=== PATIENT | male | born 1965 | race Caucasian/White ===

== ENCOUNTER → 2019-01-19 | Outpatient (CLI) | payer BC ==
[~2019-01-19] MED LIST: LISINOPRIL-HCT1 EAC2 PO; LORCET 5-325 M1 EACH PO; METFORMIN HCL500 M3; PERCOCET 5-3251 EACH PO; PRILOSEC OTC20 MG; SIMVASTATIN80 MG PO
[2019-01-19 06:49] LABS: POTASSIUM 3.7 mmol/L (3.5-5.1)
== END ==
LOC: M.LAB 04:55
PROVIDERS: Anesthesiology
DX: E11.9 Type 2 diabetes mellitus without complications (principal); E87.6 Hypokalemia

== ENCOUNTER 2019-01-21 18:39 | Emergency (ER) | payer BC ==
[~2019-01-21] VITALS: Ht 172.7 cm; Wt 77.1 kg
[2019-01-21] MEDS ORDERED: LISINOPRIL-HCT1 EAC2 PO (19:06)
[2019-01-21] MEDS ORDERED: LORCET 5-325 M1 EACH PO (19:07)
[2019-01-21] MEDS ORDERED: SIMVASTATIN80 MG PO (19:07)
[2019-01-21] MEDS ORDERED: METFORMIN HCL500 M3 (19:07)
[2019-01-21] MEDS ORDERED: PRILOSEC OTC20 MG (19:07)
[2019-01-21] MEDS ORDERED: PERCOCET 5-3251 EACH PO (19:28)
[2019-01-21 19:57] VITALS: BP 151/85
== END 2019-01-21 19:58 | disposition home or self-care (01) ==
LOC: M.ERS 18:39
DX: G89.18 Other acute postprocedural pain (principal); M79.674 Pain in right toe(s); I10 Essential (primary) hypertension; E11.9 Type 2 diabetes mellitus without complications; K21.9 Gastro-esophageal reflux disease without esophagitis; Z88.6 Allergy status to analgesic agent